=== PATIENT | female | born 1955 | race African-American/Black ===

== ENCOUNTER 2018-07-10 05:34 | Inpatient (IN) ==
[2018-07-05 10:55] LABS: Basophils # 0.1 10*3/uL (0.0-0.2); Basophils % 1.8 % (0.0-0.8); Eosinophils % 0.7 % (0.00-10.9); Hematocrit 40.1 VOL% (35.7-47.0); Hemoglobin 13.5 GM/DL (12.0-16.0); Immature Granulocytes % 0.2 %; Immature Granulocytes Absolute 0.01 #; Lymphocytes # 2.3 10*3/uL (1.4-4.0); Lymphocytes % 53.1 % (21.3-54.2); Mean Corpuscular HGB Conc 33.7 GM/DL (32-36); Mean Corpuscular Hemoglobin 30 PG (27-34); Mean Corpuscular Volume 87.6 FL (87-102); Mean Platelet Volume 10.2 FL (9.6-12.0); Monocytes # 0.4 10*3/uL (0.11-0.8); Monocytes % 8.4 % (1.7-12.7); Neutrophils # 1.6 10*3/uL (1.4-7.4); Neutrophils % 35.8 % (38.7-73.9); Platelet Count 124 T/CUMM (130-400); Red Blood Count 4.58 MC/CUMM (3.8-5.5); Red Cell Distribution Width 13.9 % (9.3-17.3); White Blood Count 4.4 T/CUMM (4-12)
[2018-07-05 10:57] LABS: Apearance,Urine CLEAR (Clear); Bacteria,Urine Occasional /HPF (Few); Bilirubin,Urine Negative (Negative); Blood, Urine Moderate mg/dL (Negative); Glucose,Urine (UA) Negative (Negative); Ketones,Urine Negative (Negative); Mucus,Urine Occasional /LPF (Occasional); Nitrite,Urine Negative (Negative); Protein,Urine Negative; RBC,Urine 10 /HPF (0-4); Squamous Epithelial Cell,Urine Occasional /HPF (0-10); Urine Color Yellow (Yellow); Urine Specific Gravity 1.013 (1.001-1.035)
[2018-07-05 11:06] LABS: INR 1.1; Partial Thromboplastin Time 27.4 SECS (0-40)
[2018-07-05 11:07] LABS: Calcium 8.8 MG/DL (8.5-10.1); Osmolality,Calculated 279.3 MOS/KG (273-304); Potassium 3.1 MMOL/L (3.5-5.1)
[2018-07-05 11:16] LABS: Band Neutrophils 1 % (0-10); Eosinophils 2 % (0-10); Hypochromasia 1+; Lymphocytes 50 % (20-55); Platelet Estimate Normal; Segmented Neutrophils 36 % (50-85); Total Cells Counted 100
[~2018-07-10 05:34] MED LIST: SODIUM CHLORIDE 0.9% 1,000 ML IV PRN
[2018-07-10] MEDS ORDERED: TISSUE ADHESIVE 1 EACH APPLICATOR TOP ONE (05:59)
[2018-07-10] MEDS ORDERED: BUPIVACAINE LIPOSOMAL 20 ML/266 MG VIAL ONE (06:00)
[2018-07-10] MEDS ORDERED: CEFUROXIME 1,500 MG VIAL ONE ×2 (06:18→06:44)
[2018-07-10] MEDS ORDERED: CEFUROXIME INJ 1,500 MG in SYRINGE 1 EACH IV ONE ×2 (06:54→07:11)
[2018-07-10] MEDS: LACTATED RINGERS 1,000 ML IV SCH ×2 (07:09→14:53)
[2018-07-10] MEDS ORDERED: ACETAMINOPHEN INJ 1,000 MG in PREMIX 1 EACH IV ONE (07:11)
[2018-07-10] MEDS ORDERED: BUPIVACAINE LIPOSOMAL 20 ML/266 MG VIAL INFILTRAT ONE (07:11)
[2018-07-10] MEDS ORDERED: HEPARIN/NACL 0.9% 2 UNITS/ML 500 ML IV ONE (07:16)
[2018-07-10 07:59] LABS: Apearance,Urine CLEAR (Clear); Bilirubin,Urine Negative (Negative); Blood, Urine Moderate mg/dL (Negative); Glucose,Urine (UA) Negative (Negative); Ketones,Urine Negative (Negative); Mucus,Urine Occasional /LPF (Occasional); Nitrite,Urine Negative (Negative); Protein,Urine Negative; RBC,Urine 6 /HPF (0-4); Squamous Epithelial Cell,Urine Occasional /HPF (0-10); Urine Color Yellow (Yellow); Urine Specific Gravity 1.014 (1.001-1.035); WBC,Urine <1 /HPF (0-6)
[2018-07-10] MEDS ORDERED: ONDANSETRON 4 MG/2 ML VIAL IV PRN ×2 (11:51→11:54)
[2018-07-10] MEDS ORDERED: HYDROmorphone 2 MG/1 ML VIAL IV PRN (11:54)
[2018-07-10] MEDS ORDERED: diphenhydrAMINE 50 MG/1 ML VIAL IV PRN (11:54)
[2018-07-10] MEDS ORDERED: MEPERIDINE 25 MG/1 ML VIAL IV PRN (11:54)
[2018-07-10] MEDS ORDERED: PROMETHAZINE INJ 25 MG in SODIUM CHLORIDE 0.9% 50 ML IV PRN (11:54)
[2018-07-10] MEDS ORDERED: MEPERIDINE 25 MG/1 ML VIAL ONE (12:01)
[2018-07-10] MEDS ORDERED: ONDANSETRON 4 MG/2 ML VIAL ONE ×2 (12:01→12:06)
[2018-07-10] MEDS ORDERED: SEVOFLURANE 1 UNIT/15 MINUTE INH ONE (12:04)
[2018-07-10] MEDS ORDERED: PROPOFOL 200 MG/20 ML VIAL IV ONE (12:04)
[2018-07-10] MEDS ORDERED: MIDAZOLAM 2 MG/2 ML VIAL ONE (12:05)
[2018-07-10] MEDS ORDERED: SUFentanil 50 MCG/ML AMP ONE (12:06)
[2018-07-10] MEDS ORDERED: GLYCOPYRROLATE 0.4 MG/2 ML VIAL ONE ×2 (12:06→12:07)
[2018-07-10] MEDS ORDERED: PHENYLEPHRINE 10 MG/1 ML VIAL IV ONE (12:06)
[2018-07-10] MEDS ORDERED: ePHEDrine 50 MG/ML AMP ONE (12:06)
[2018-07-10] MEDS ORDERED: SODIUM CHLORIDE 0.9% 1,000 ML IV ONE (12:07)
[2018-07-10] MEDS ORDERED: DEXAMETHASONE 20 MG/5 ML VIAL ONE (12:07)
[2018-07-10] MEDS ORDERED: ACETAMINOPHEN 1,000 MG/100 ML VIAL IV ONE (12:07)
[2018-07-10] MEDS ORDERED: NEOSTIGMINE 10 MG/10 ML VIAL ONE (12:07)
[2018-07-10] MEDS ORDERED: SODIUM CHLORIDE 0.9% 250 ML IV ONE (12:07)
[2018-07-10] MEDS ORDERED: SODIUM CHLORIDE 0.9% 100 ML IV ONE (12:07)
[2018-07-10] MEDS ORDERED: ROCURONIUM 100 MG/10 ML VIAL IV ONE (12:07)
[2018-07-10] MEDS ORDERED: KETOROLAC 15 MG/1 ML VIAL ONE (12:32)
[2018-07-10] MEDS: KETOROLAC 15 MG/1 ML VIAL IV SCH ×2 (12:34→17:37)
[2018-07-10 13:20] LABS: Basophils % 0.3 % (0.0-0.8); Hematocrit 29.6 VOL% (35.7-47.0); Hemoglobin 9.7 GM/DL (12.0-16.0); Immature Granulocytes % 0.5 %; Immature Granulocytes Absolute 0.07 #; Lymphocytes # 0.9 10*3/uL (1.4-4.0); Lymphocytes % 6.8 % (21.3-54.2); Mean Corpuscular HGB Conc 32.8 GM/DL (32-36); Mean Corpuscular Hemoglobin 29 PG (27-34); Mean Corpuscular Volume 89.7 FL (87-102); Mean Platelet Volume 10.4 FL (9.6-12.0); Monocytes # 0.4 10*3/uL (0.11-0.8); Monocytes % 2.7 % (1.7-12.7); Neutrophils # 11.7 10*3/uL (1.4-7.4); Neutrophils % 89.7 % (38.7-73.9); Platelet Count 103 T/CUMM (130-400)
[2018-07-10] MEDS ORDERED: LACTATED RINGERS 1,000 ML IV ONE (13:44)
[2018-07-10] MEDS: PHENYLEPHRINE DRIP 40 MG/250 ML PREMIX IV PRN (13:45)
[2018-07-10 13:50] LABS: Calcium 7.4 MG/DL (8.5-10.1); Osmolality,Calculated 283.1 MOS/KG (273-304); Potassium 2.6 MMOL/L (3.5-5.1)
[2018-07-10] MEDS ORDERED: POTASSIUM CHLORIDE RIDER 10 MEQ in PREMIX 1 EACH IV PRN (14:43)
[2018-07-10] MEDS ORDERED: POTASSIUM CHLORIDE RIDER 100 ML IV ONE (14:48)
[2018-07-10] MEDS: POTASSIUM CHLORIDE RIDER 20 MEQ in PREMIX 1 EACH IV PRN ×2 (14:52→22:28)
[2018-07-10] MEDS: GABAPENTIN 100 MG CAPSULE PO SCH ×2 (15:33→21:02)
[2018-07-10] MEDS: ACETAMINOPHEN INJ 1,000 MG in PREMIX 1 EACH IV SCH ×2 (17:30→23:39)
[2018-07-10] MEDS: CEFUROXIME INJ 1,500 MG in SYRINGE 1 EACH IV SCH (20:56)
[2018-07-11] MEDS: KETOROLAC 15 MG/1 ML VIAL IV SCH ×4 (00:04→17:27)
[2018-07-11] MEDS: PHENYLEPHRINE DRIP 40 MG/250 ML PREMIX IV PRN ×2 (00:05→06:31)
[2018-07-11 04:23] LABS: Hematocrit 25.8 VOL% (35.7-47.0); Hemoglobin 8.6 GM/DL (12.0-16.0); Immature Granulocytes % 0.5 %; Immature Granulocytes Absolute 0.05 #; Lymphocytes # 1.4 10*3/uL (1.4-4.0); Lymphocytes % 14.3 % (21.3-54.2); Mean Corpuscular HGB Conc 33.3 GM/DL (32-36); Mean Corpuscular Hemoglobin 30 PG (27-34); Mean Corpuscular Volume 90.2 FL (87-102); Monocytes # 0.6 10*3/uL (0.11-0.8); Monocytes % 5.5 % (1.7-12.7); Neutrophils % 79.7 % (38.7-73.9); Platelet Count 138 T/CUMM (130-400); Red Blood Count 2.86 MC/CUMM (3.8-5.5); Red Cell Distribution Width 14.1 % (9.3-17.3)
[2018-07-11 04:58] LABS: Calcium 8.2 MG/DL (8.5-10.1); Osmolality,Calculated 278.4 MOS/KG (273-304); Potassium 3.9 MMOL/L (3.5-5.1)
[2018-07-11] MEDS: ACETAMINOPHEN 500 MG TABLET PO SCH ×3 (05:39→17:27)
[2018-07-11] MEDS: ENOXAPARIN 40 MG/0.4 ML SYRINGE SUBCUT SCH (05:40)
[2018-07-11] MEDS: POTASSIUM CHLORIDE RIDER 20 MEQ in PREMIX 1 EACH IV PRN (06:20)
[2018-07-11] MEDS: LACTATED RINGERS 1,000 ML IV SCH (06:30)
[2018-07-11] MEDS: CEFUROXIME INJ 1,500 MG in SYRINGE 1 EACH IV SCH (08:39)
[2018-07-11] MEDS: PANTOPRAZOLE 40 MG VIAL IV SCH (08:46)
[2018-07-11] MEDS: CELECOXIB 200 MG CAPSULE PO SCH ×2 (08:49→21:43)
[2018-07-11] MEDS: GABAPENTIN 100 MG CAPSULE PO SCH ×3 (08:50→21:44)
[2018-07-11] MEDS ORDERED: SODIUM CHLORIDE 0.9% 1,000 ML IV PRN (08:54)
[2018-07-11] MEDS ORDERED: traMADol 50 MG TABLET PO PRN (11:51)
[2018-07-12] MEDS: ACETAMINOPHEN 500 MG TABLET PO SCH ×5 (01:57→17:47)
[2018-07-12] MEDS: KETOROLAC 15 MG/1 ML VIAL IV SCH ×2 (01:57→06:57)
[2018-07-12 04:47] LABS: Basophils % 0.1 % (0.0-0.8); Hematocrit 23.5 VOL% (35.7-47.0); Hemoglobin 7.7 GM/DL (12.0-16.0); Immature Granulocytes % 0.8 %; Immature Granulocytes Absolute 0.11 #; Lymphocytes # 2.7 10*3/uL (1.4-4.0); Lymphocytes % 19.9 % (21.3-54.2); Mean Corpuscular HGB Conc 32.8 GM/DL (32-36); Mean Corpuscular Hemoglobin 30 PG (27-34); Mean Corpuscular Volume 91.1 FL (87-102); Monocytes # 0.9 10*3/uL (0.11-0.8); Monocytes % 6.9 % (1.7-12.7); Neutrophils # 9.8 10*3/uL (1.4-7.4); Neutrophils % 72.3 % (38.7-73.9); Red Blood Count 2.58 MC/CUMM (3.8-5.5); Red Cell Distribution Width 15.3 % (9.3-17.3); White Blood Count 13.6 T/CUMM (4-12)
[2018-07-12 04:48] LABS: Platelet Count 98 T/CUMM (130-400)
[2018-07-12 05:00] LABS: Calcium 7.6 MG/DL (8.5-10.1); Osmolality,Calculated 281.3 MOS/KG (273-304); Potassium 4.2 MMOL/L (3.5-5.1)
[2018-07-12] MEDS: ENOXAPARIN 40 MG/0.4 ML SYRINGE SUBCUT SCH (06:57)
[2018-07-12] MEDS ORDERED: SODIUM CHLORIDE 0.9% 1,000 ML IV PRN (08:22)
[2018-07-12] MEDS: CELECOXIB 200 MG CAPSULE PO SCH ×2 (09:00→21:33)
[2018-07-12] MEDS: PANTOPRAZOLE 40 MG VIAL IV SCH (09:00)
[2018-07-12] MEDS: GABAPENTIN 100 MG CAPSULE PO SCH ×3 (09:00→21:33)
[2018-07-12 22:40] LABS: Hematocrit 24.7 VOL% (35.7-47.0); Hemoglobin 8.3 GM/DL (12.0-16.0)
[2018-07-13] MEDS: ACETAMINOPHEN 500 MG TABLET PO SCH ×5 (01:18→23:28)
[2018-07-13 06:02] LABS: Basophils % 0.3 % (0.0-0.8); Eosinophils # 0.1 10*3/uL (0.0-0.87); Eosinophils % 0.7 % (0.00-10.9); Hematocrit 26.2 VOL% (35.7-47.0); Hemoglobin 8.6 GM/DL (12.0-16.0); Lymphocytes % 38.5 % (21.3-54.2); Mean Corpuscular HGB Conc 32.8 GM/DL (32-36); Mean Corpuscular Hemoglobin 30 PG (27-34); Mean Corpuscular Volume 91.3 FL (87-102); Mean Platelet Volume 11.2 FL (9.6-12.0); Monocytes # 0.8 10*3/uL (0.11-0.8); Monocytes % 7.6 % (1.7-12.7); NRBC # 0.03 10*3/uL; Neutrophils # 5.3 10*3/uL (1.4-7.4); Neutrophils % 51.9 % (38.7-73.9); Platelet Count 117 T/CUMM (130-400); Red Blood Count 2.87 MC/CUMM (3.8-5.5); Red Cell Distribution Width 15.1 % (9.3-17.3); White Blood Count 10.3 T/CUMM (4-12)
[2018-07-13] MEDS: ENOXAPARIN 40 MG/0.4 ML SYRINGE SUBCUT SCH (06:29)
[2018-07-13 06:33] LABS: Calcium 7.5 MG/DL (8.5-10.1); Osmolality,Calculated 285.8 MOS/KG (273-304); Potassium 3.6 MMOL/L (3.5-5.1)
[2018-07-13] MEDS: GABAPENTIN 100 MG CAPSULE PO SCH ×3 (09:45→20:33)
[2018-07-13] MEDS: PANTOPRAZOLE 40 MG VIAL IV SCH (09:49)
[2018-07-13] MEDS: CELECOXIB 200 MG CAPSULE PO SCH ×2 (10:13→20:32)
[2018-07-13] MEDS: POTASSIUM CHLORIDE RIDER 20 MEQ in PREMIX 1 EACH IV PRN (11:12)
[2018-07-13] MEDS ORDERED: SODIUM CHLORIDE 0.9% 1,000 ML IV ONE (13:26)
[2018-07-13] MEDS ORDERED: SODIUM CHLORIDE 0.9% 1,000 ML IV PRN (17:42)
[2018-07-14] MEDS: ACETAMINOPHEN 500 MG TABLET PO SCH (06:08)
[2018-07-14] MEDS: ENOXAPARIN 40 MG/0.4 ML SYRINGE SUBCUT SCH (06:08)
[2018-07-14 08:33] VITALS: BP 118/73
[2018-07-14] MEDS: PANTOPRAZOLE 40 MG VIAL IV SCH (09:17)
[2018-07-14] MEDS: CELECOXIB 200 MG CAPSULE PO SCH (09:17)
[2018-07-14] MEDS: GABAPENTIN 100 MG CAPSULE PO SCH (09:17)
== END 2018-07-14 10:58 | disposition home health service (06) | DRG 164 ==
LOC: N.SDSINP 05:34 → N.ICU 12:17 → N.TELES 07-11 15:18
PROVIDERS: ADMIT Thoracic Surgery (Cardiothoracic Vascular Surgery); ATTEND Thoracic Surgery (Cardiothoracic Vascular Surgery)

== ENCOUNTER 2022-06-06 06:34 | Observation (INO) ==
[2022-06-06] MEDS ORDERED: LACTATED RINGERS 1,000 ML IV SCH (07:00)
[2022-06-06] MEDS ORDERED: DIAZEPAM 5 MG TABLET PO ONE (07:00)
[2022-06-06 07:16] LABS: Basophils # 0.1 10*3/uL (0.0-0.2); Basophils % 1.8 % (0.0-0.8); Eosinophils % 0.9 % (0.00-10.9); Hematocrit 38.2 VOL% (35.7-47.0); Hemoglobin 13.3 GM/DL (12.0-16.0); Immature Granulocytes % 0.2 %; Immature Granulocytes Absolute 0.01 #; Lymphocytes # 1.9 10*3/uL (1.4-4.0); Lymphocytes % 43.6 % (21.3-54.2); Mean Corpuscular HGB Conc 34.8 GM/DL (32-36); Mean Corpuscular Volume 89.7 FL (87-102); Mean Platelet Volume 10.5 FL (9.6-12.0); Monocytes # 0.6 10*3/uL (0.11-0.8); Neutrophils % 39.5 % (38.7-73.9); Platelet Count 112 T/CUMM (130-400); Red Blood Count 4.26 MC/CUMM (3.8-5.5); Red Cell Distribution Width 16.3 % (9.3-17.3); White Blood Count 4.4 T/CUMM (4-12)
[2022-06-06 07:24] LABS: INR 1.3
[2022-06-06] MEDS ORDERED: ACETAMINOPHEN 325 MG TABLET PO PRN (09:55)
[2022-06-06] MEDS ORDERED: NICOTINE 21 MG/24 HR PATCH TRANSDERM PRN (14:03)
[2022-06-06] MEDS ORDERED: MORPHINE 2 MG/1 ML SYRINGE IV PRN (15:25)
[2022-06-07 05:58] LABS: Basophils % 0.9 % (0.0-0.8); Eosinophils % 0.2 % (0.00-10.9); Hematocrit 35.9 VOL% (35.7-47.0); Hemoglobin 12.3 GM/DL (12.0-16.0); Immature Granulocytes % 0.2 %; Immature Granulocytes Absolute 0.01 #; Lymphocytes # 1.2 10*3/uL (1.4-4.0); Lymphocytes % 25.6 % (21.3-54.2); Mean Corpuscular HGB Conc 34.3 GM/DL (32-36); Mean Platelet Volume 11.1 FL (9.6-12.0); Monocytes # 0.6 10*3/uL (0.11-0.8); Monocytes % 13.6 % (1.7-12.7); Neutrophils % 59.5 % (38.7-73.9); Platelet Count 98 T/CUMM (130-400); Red Blood Count 3.99 MC/CUMM (3.8-5.5); Red Cell Distribution Width 16.5 % (9.3-17.3); White Blood Count 4.7 T/CUMM (4-12)
[2022-06-07 06:19] LABS: Platelet Estimate Decreased
[2022-06-07 06:30] LABS: Calcium 7.9 MG/DL (8.5-10.1); Osmolality,Calculated 275.5 MOS/KG (273-304); Risk Ratio 6.35; Thyroid Stimulating Hormone 1.45 uIU/ml (0.358-3.74)
[2022-06-07 06:33] LABS: Potassium 2.5 MMOL/L (3.5-5.1)
[2022-06-07] MEDS ORDERED: POTASSIUM CHLORIDE 20 MEQ TABLET PO ONE ×2 (07:30→09:15)
[2022-06-07] MEDS ORDERED: hydroCHLOROthiazide 25 MG TABLET PO SCH (09:00)
[2022-06-07] MEDS ORDERED: POTASSIUM CHLORIDE 20 MEQ TABLET PO SCH (09:00)
[2022-06-07] MEDS ORDERED: DILTIAZEM CD 240 MG CAPSULE PO SCH (09:00)
[2022-06-07 15:28] VITALS: BP 133/61
== END 2022-06-07 16:30 | disposition home or self-care (01) ==
LOC: SUATTDRO → N.SDSINP 06:34 → N.3E 15:03
PROVIDERS: ADMIT Radiology Diagnostic Radiology; ATTEND Radiology Diagnostic Radiology
PROC: IRGDHTC (2022-06-06 14:05)